=== PATIENT | female | born 1990 | race Two or more races ===

== ENCOUNTER 2018-04-11 19:42 | Emergency (ER) | payer OTHER ==
[~2018-04-11] VITALS: Ht 157.5 cm; Wt 59.0 kg
[2018-04-11] MEDS ORDERED: SINGULAIR 5MG5 MG (20:20)
[2018-04-11] MEDS ORDERED: ADVAIR 100-501 EACH (20:21)
== END 2018-04-11 21:06 | disposition home or self-care (01) ==
LOC: ER 19:42
DX: T25.221A Burn of second degree of right foot, initial encounter (principal); X10.2XXA Contact with fats and cooking oils, initial encounter; Y93.89 Activity, other specified; Y92.832 Beach as the place of occurrence of the external cause; Y99.8 Other external cause status